=== PATIENT | female | born 1970 | race Caucasian/White ===

== ENCOUNTER 2020-07-19 23:51 | Emergency (ER) | payer BC ==
[~2020-07-19] VITALS: Ht 165.1 cm; Wt 81.6 kg
[2020-07-20] MEDS ORDERED: AMLODIPINE-OLM1 EAC1 (00:05)
[2020-07-20] MEDS ORDERED: PEPCID40 MG PO (05:47)
[2020-07-20] MEDS ORDERED: LEVSIN/SL0.125 MG SL (05:47)
[2020-07-20] MEDS ORDERED: PHAZYME250 MG PO (05:47)
== END 2020-07-20 05:51 | disposition home or self-care (01) ==
LOC: ER 23:51
DX: R10.11 Right upper quadrant pain (principal)